=== PATIENT | female | born 1960 | race Caucasian/White ===

== ENCOUNTER 2022-10-17 17:54 | Outpatient (CLI) | payer BC, SELFPAY ==
--- NOTE | 2022-10-17 | DI.RAD_ITS ---
Exam(s) XR KNEE LT 3V AP,LAT,MECHE EXAM: XR KNEE LT 3V AP,LAT,MECHE CLINICAL HISTORY: pain along tibial plateau, swelling acute injury TECHNIQUE: COMPARISON: No exams were available for comparison FINDINGS: Four views were obtained. There are moderate degenerative changes of the joints of the knee. There is an apparent large joint effusion , no acute fracture identified on this series. IMPRESSION: RADIATION DOSE DELIVERED: Total DLP
--- NOTE | 2022-10-17 19:15 | DI.VRAD_ITS ---
PROCEDURE INFORMATION: Exam: XR Left Knee Exam date and time: 10/17/2022 6:54 PM Age: 61 years old Clinical indication: Other: Pain along tibial plateau, swelling acute injury TECHNIQUE: Imaging protocol: Radiologic exam of the Left knee. Views: 3 views. COMPARISON: No relevant prior studies available. FINDINGS: Bones/joints: Large joint effusion with curvilinear area of increased attenuation. There is no acute fracture or dislocation. Degenerative changes noted Soft tissues: Normal. IMPRESSION: No acute fracture Large joint effusion Dictated and Authenticated by: Chuck King MD. Ordering:HA Harrison MD
== END 2022-10-17 18:14 ==
PROVIDERS: Visit Provider Family Medicine
DX: M25.562 Pain in left knee (principal); M25.462 Effusion, left knee; M17.12 Unilateral primary osteoarthritis, left knee
CPT/HCPCS: 73562